=== PATIENT | male | born 1995 | race Two or more races ===

== ENCOUNTER 2017-11-29 14:29 | Inpatient (IN) | payer MEDICAID ==
[~2017-11-29] VITALS: Ht 175.3 cm; Wt 81.0 kg
[2017-11-29] MEDS ORDERED: SODIUM CHLORIDE 0.9% 1,000 ML IVB ONE (15:10)
[2017-11-29 15:11] LABS: Basophils # (auto) 0 uL; Basophils % (auto) 0.1 % (0.0-2.0); Eosinophils # (auto) 0 uL; Eosinophils % (auto) 0.1 % (0.0-7.0); Hematocrit 45.6 % (41.0-53.0); Hemoglobin 15.6 g/dL (13.5-17.5); Lymphocytes # (auto) 1.2 uL; Lymphocytes % (auto) 13.3 % (10.0-50.0); Mean Corpuscular Hemoglobin 30.7 pg (28.0-32.0); Mean Corpuscular Hgb Conc. 34.2 g/dL (32.0-36.0); Mean Corpuscular Volume 89.8 fL (80.0-100.0); Monocytes # (auto) 0.7 uL; Monocytes % (auto) 7.8 % (0.0-12.0); Neutrophils # (auto) 7.3 uL; Neutrophils % (auto) 78.7 % (37.0-80.0); Platelet Count (auto) 230 10^3/uL (140-450); Red Blood Cells 5.08 10^6/uL (4.5-5.90); Red Cell Distribution Width 13.7 % (11.8-14.3); White Blood Cell 9.3 10^3/uL (4.4-10.8)
[2017-11-29] MEDS ORDERED: LORazepam 2MG/ML-1ML VIAL IV ONE (15:15)
[2017-11-29] MEDS ORDERED: PANTOPRAZOLE 80 MG in SODIUM CHL 0.9% 60 ML IV ONE (15:15)
[2017-11-29] MEDS ORDERED: PANTOPRAZOLE 40 MG/10 ML VIAL IV ONE (15:15)
[2017-11-29] MEDS ORDERED: SODIUM CHLORIDE 0.9% 3,000 ML IV ONE (15:15)
[2017-11-29 15:24] LABS: Urine Bacteria NONE SEEN /hpf (None Seen); Urine Blood Negative /uL (Negative); Urine Mucus FEW (None Seen); Urine Specific Gravity 1.031 (1.001-1.035); Urine WBC 4 /hpf (0 - 3)
[2017-11-29 15:30] LABS: Alanine Aminotransferase 25 U/L (16-61); Albumin 4.5 g/dL (3.4-5.0); Anion Gap 16 (5-15); Aspartate Aminotransferase 18 U/L (15-37); BUN/Creatinine Ratio 12.1; Blood Alcohol < 3.0 mg/dL (0-5); Blood Urea Nitrogen 17 mg/dL (7-18); Calcium 8.5 mg/dL (8.5-10.1); Carbon Dioxide 19 mmol/L (21-32); Chloride 105 mmol/L (98-107); GFR African American 80 mL/min; GFR Non-African American 66 mL/min; Glucose 91 mg/dL (74-106); Potassium 3.3 mmol/L (3.5-5.1); Sodium 140 mmol/L (136-145)
[2017-11-29] MEDS ORDERED: SODIUM CHLORIDE 0.9% 1,000 ML IV ONE (15:30)
[2017-11-29 15:31] LABS: Salicylate < 1.7 mg/dL (2.8-20.0)
[2017-11-29 15:33] LABS: Alkaline Phosphatase 50 U/L (45-117); Bilirubin, Total 1.6 mg/dL (0.2-1.0); Total Protein 7.9 g/dL (6.4-8.2)
[2017-11-29 15:36] LABS: Acetaminophen < 2.0 ug/mL (10-30)
[2017-11-29 15:39] LABS: Amphetamine Screen, Urine NEGATIVE (NEGATIVE); Barbiturate Scree,Urine NEGATIVE (NEGATIVE); Benzodiazephine Screen, Urine NEGATIVE (NEGATIVE); Cannabinoid Screen, Urine POSITIVE (NEGATIVE); Cocaine Screen, Urine NEGATIVE (NEGATIVE); Opiate Scree,Urine NEGATIVE (NEGATIVE); Phencyclidine Screen, Urine NEGATIVE (NEGATIVE)
[2017-11-29] MEDS ORDERED: POTASSIUM EFFERVESENT TAB 25 MEQ PO ONE (17:30)
[2017-11-29] MEDS ORDERED: VANCOMYCIN PER PHARMACY 0 MG IV SCH (18:30)
[2017-11-29] MEDS ORDERED: cefTRIAXone 1GM/10ml IVPUSH 10 ML IV ONE (18:30)
[2017-11-29] MEDS ORDERED: HYDROcodone-ACET 5/325MG TAB PO PRN (18:30)
[2017-11-29] MEDS ORDERED: DOCUSATE SOD 100 MG CAP PO PRN (18:30)
[2017-11-29] MEDS ORDERED: MORPHINE SULFATE 4 MG/ML SYR/VIAL IV PRN (18:30)
[2017-11-29] MEDS ORDERED: ACETAMINOPHEN 325 MG TAB PO PRN (18:30)
[2017-11-29] MEDS ORDERED: NITROGLYCERIN 0.4 MG SL TAB SL PRN (18:30)
[2017-11-29] MEDS ORDERED: ONDANSETRON HCL 4 MG/2 ML VIAL IV PRN (18:30)
[2017-11-29] MEDS ORDERED: SODIUM CHLORIDE 0.9% 2,000 ML IV ONE (18:30)
[2017-11-29] MEDS: SODIUM CHLORIDE 0.9% 1,000 ML IV SCH (18:48)
[2017-11-29] MEDS: LORazepam 2MG/ML-1ML VIAL IV PRN ×2 (19:25→20:32)
[2017-11-29 21:21] VITALS: BP 147/87
[2017-11-29] MEDS: VANCOMYCIN 1GM/250ML 250 ML IV SCH (21:47)
[2017-11-30] MEDS: ALBUTEROL SULF 2.5 MG/0.5ML(0.5%) NEB SOLN NEB SCH ×4 (00:05→20:15)
[2017-11-30] MEDS: IPRATROPIUM BROM 0.5 MG/2.5ML INH SOL NEB SCH ×4 (00:05→20:15)
[2017-11-30] MEDS ORDERED: LORazepam 2MG/ML-1ML VIAL IV ONE (01:15)
[2017-11-30 05:09] VITALS: BP 135/79
[2017-11-30 06:08] LABS: Basophils # (auto) 0 uL; Basophils % (auto) 0.3 % (0.0-2.0); Eosinophils # (auto) 0 uL; Eosinophils % (auto) 0.1 % (0.0-7.0); Hemoglobin 13.9 g/dL (13.5-17.5); Lymphocytes # (auto) 2.4 uL; Mean Corpuscular Hemoglobin 30.8 pg (28.0-32.0); Mean Corpuscular Hgb Conc. 33.9 g/dL (32.0-36.0); Mean Corpuscular Volume 90.6 fL (80.0-100.0); Monocytes % (auto) 9.1 % (0.0-12.0); Neutrophils # (auto) 7.5 uL; Neutrophils % (auto) 68.5 % (37.0-80.0); Nucleated Red Blood Cells % 0.1 %; Platelet Count (auto) 213 10^3/uL (140-450); Red Blood Cells 4.53 10^6/uL (4.5-5.90); Red Cell Distribution Width 13.7 % (11.8-14.3); White Blood Cell 10.9 10^3/uL (4.4-10.8)
[2017-11-30] MEDS: SODIUM CHLORIDE 0.9% 1,000 ML IV SCH ×3 (06:16→19:30)
[2017-11-30] MEDS: VANCOMYCIN 1GM/250ML 250 ML IV SCH ×2 (06:16→16:11)
[2017-11-30 06:20] LABS: Albumin 3.8 g/dL (3.4-5.0); BUN/Creatinine Ratio 9.2; Calcium 7.7 mg/dL (8.5-10.1); Potassium 3.7 mmol/L (3.5-5.1)
[2017-11-30 06:23] LABS: Bilirubin, Total 1.9 mg/dL (0.2-1.0); Total Protein 6.8 g/dL (6.4-8.2)
[2017-11-30 08:06] VITALS: BP 139/78
[2017-11-30] MEDS: FAMOTIDINE 20 MG TAB PO SCH ×2 (10:12→21:06)
[2017-11-30] MEDS: cefTRIAXone 1GM/10ml IVPUSH 10 ML IV SCH (10:12)
[2017-11-30] MEDS: MULTIPLE VITAMIN TAB PO SCH (10:12)
[2017-11-30 11:45] VITALS: BP 136/81
[2017-11-30] MEDS ORDERED: ALPRAZolam 0.25 MG TAB PO PRN (13:15)
[2017-11-30 13:43] VITALS: BP 136/81
[2017-11-30 16:07] VITALS: BP 128/79
[2017-11-30 22:00] VITALS: BP 136/79
[2017-12-01] MEDS: ALBUTEROL SULF 2.5 MG/0.5ML(0.5%) NEB SOLN NEB SCH ×4 (01:07→19:02)
[2017-12-01] MEDS: IPRATROPIUM BROM 0.5 MG/2.5ML INH SOL NEB SCH ×4 (01:07→19:02)
[2017-12-01] MEDS: VANCOMYCIN 1GM/250ML 250 ML IV SCH ×3 (02:07→22:00)
[2017-12-01 05:00] VITALS: BP 143/86
[2017-12-01] MEDS: SODIUM CHLORIDE 0.9% 1,000 ML IV SCH ×3 (05:07→20:27)
[2017-12-01 08:00] VITALS: BP 152/75
[2017-12-01] MEDS: MULTIPLE VITAMIN TAB PO SCH (09:50)
[2017-12-01] MEDS: cefTRIAXone 1GM/10ml IVPUSH 10 ML IV SCH (09:50)
[2017-12-01] MEDS: FAMOTIDINE 20 MG TAB PO SCH ×2 (09:50→22:30)
[2017-12-01 17:28] VITALS: BP 121/77
[2017-12-01 20:00] VITALS: BP 131/58
[2017-12-01 22:00] VITALS: BP 131/58
[2017-12-02] MEDS: ALBUTEROL SULF 2.5 MG/0.5ML(0.5%) NEB SOLN NEB SCH ×3 (00:48→11:45)
[2017-12-02] MEDS: IPRATROPIUM BROM 0.5 MG/2.5ML INH SOL NEB SCH ×3 (00:49→11:45)
[2017-12-02 05:00] VITALS: BP 124/56
[2017-12-02] MEDS: SODIUM CHLORIDE 0.9% 1,000 ML IV SCH (06:35)
[2017-12-02 08:00] VITALS: BP 122/54
[2017-12-02] MEDS: VANCOMYCIN 1GM/250ML 250 ML IV SCH (08:29)
[2017-12-02] MEDS: cefTRIAXone 1GM/10ml IVPUSH 10 ML IV SCH (08:30)
[2017-12-02 09:00] VITALS: BP 122/54
[2017-12-02] MEDS: MULTIPLE VITAMIN TAB PO SCH (10:20)
[2017-12-02] MEDS: FAMOTIDINE 20 MG TAB PO SCH (10:20)
== END 2017-12-02 16:00 | disposition psychiatric hospital, planned readmission (93) | DRG 812 ==
LOC: EDBD 14:29 → ER 14:29 → TELE 14:30 → TELE-WESTW 21:05 → WEST WING 12-01 20:18
PROVIDERS: ADMIT Internal Medicine; ATTEND Internal Medicine
DX: T44.3X2A Poisoning by other parasympatholytics [anticholinergics and antimuscarinics] and spasmolytics, intentional self-harm, initial encounter (principal); G92 Toxic encephalopathy; A41.9 Sepsis, unspecified organism; E87.6 Hypokalemia; N18.2 Chronic kidney disease, stage 2 (mild); F12.10 Cannabis abuse, uncomplicated; J45.909 Unspecified asthma, uncomplicated; T39.312A Poisoning by propionic acid derivatives, intentional self-harm, initial encounter; Z90.49 Acquired absence of other specified parts of digestive tract; Y92.89 Other specified places as the place of occurrence of the external cause
CPT/HCPCS: 36415; 51702; 71045; 80053; 80202; 80307; 80320; 80329; 81001; 83605; 83735; 84443; 85025; 87040; 93005; 94640; 94761; 96361; 96374; 96375; 97163; C9113; J0696; J2405

== ENCOUNTER 2020-11-27 23:26 | Emergency (ER) | payer SELFPAY ==
[~2020-11-27] VITALS: Ht 175.3 cm; Wt 86.2 kg
[2020-11-27 23:26] VITALS: BP 126/84
== END 2020-11-28 06:49 | disposition left against medical advice (07) ==
LOC: ER 23:30
DX: R07.81 Pleurodynia (principal); Z53.21 Procedure and treatment not carried out due to patient leaving prior to being seen by health care provider
CPT/HCPCS: 71101; 93005